=== PATIENT | male | born 1980 | race Caucasian/White ===

== ENCOUNTER → 2016-11-14 | Outpatient (CLI) | payer SELFPAY ==
[~2016-11-14] MED LIST: BENA40TA35 PO; HYDR12.523 PO; VERA120T77 PO
== END ==
LOC: LAB 14:50
PROVIDERS: ATTEND Family Medicine
DX: R45.4 Irritability and anger (principal)
CPT/HCPCS: 80307

== ENCOUNTER 2017-01-21 21:48 | Emergency (ER) | payer SELFPAY ==
[~2017-01-21] VITALS: Ht 165.1 cm; Wt 94.9 kg
--- OUTSIDE RECORDS SUMMARY | 2017-01-21 21:52 | XMS REPORT | Referral Summary ---
Author Author [facility] Organization [facility] Address Unknown Phone Unavailable Care Team Providers Care Horse Trader Name Role Phone Bev Castillo II Primary Care Physician [phone] Encounter VC MICHAEL [id number] Date(s): 05/03/16 - 05/03/16 [facility] [address] [place] [address] Discharge Diagnosis: Laceration of left thumb Discharge Disposition: 01-Home or Self Care Attending Physician: Rayray Soria MD Admitting Physician: Rayray Soria MD Vital Signs Most recent to 1 oldest [Reference Range]: Temperature Oral 36.3 degC [35.8-37.3 degC] (05/03/16 3:25 PM) Peripheral Pulse 82 bpm Rate [60-100 bpm] (05/03/16 7:23 PM) Respiratory Rate 16 br/min [14-20 br/min] (05/03/16 7:23 PM) Blood Pressure 142/87 mmHg [90-140/60-90 mmHg] *HI* (05/03/16 7:23 PM) SpO2 97 % (05/03/16 7:23 PM) Problem List No data available for this section Allergies, Adverse Reactions, Alerts No Known Allergies Medications cephalexin 500 mg oral tablet 500 mg 1 tabs, Oral, QID, X 5 days, # 20 tabs, 0 Refill(s) Start Date: 05/03/16 Stop Date: 05/08/16 Status: Ordered [place] 5 mg-325 mg oral tablet 1 tabs, Oral, q4hr, as needed for pain, # 6 tabs, 0 Refill(s) Start Date: 05/03/16 Stop Date: 05/05/16 Status: Ordered Results No data available for this section Immunizations Vaccine Date Refusal Reason tetanus/diphth/pertuss (Tdap) adult/adol 05/03/16 Procedures No data available for this section Social History Social History Type Response Smoking Status Current every day smoker; Type: Cigarettes; Tobacco use per day: 1 pack or more Assessment and Plan No data available for this section
[2017-01-21 22:06] VITALS: Ht 165.1 cm; Wt 94.9 kg
--- NOTE | 2017-01-21 22:17 | ERPDOC ---
Departure Disposition Decision Date: January 22, 2017 Disposition Decision Time: 11:37 () Disposition: 65 TO PSYCH HOSP/UNIT Impression Impression (ARMOND DIAZ MD) Impression: Primary Impression: Psychosis Psychosis type: unspecified psychosis type Qualified Codes: F29 - Unspecified psychosis not due to a substance or known physiological condition Additional Impressions: Paranoia Delusion Severity: Severe () Condition: Stable Seen By: Physician only () Referrals: RANDY WREN II, MD (Family) Problems/Meds/Labs Reviewed?: Yes Medications reviewed and manag: Yes () Follow up care ordered?: Yes Mental Status: Alert () HPI - Psychosocial General Chief Complaint: Psychiatric Problems Stated Complaint: PSYCH EVAL Time Seen by MD: 22:05 Source: patient, family Exam Limitations: clinical condition (ARMOND DIAZ MD) Time Seen by MD: 06:07 () HPI - Psychosocial Initial Comments Patient has apparently been struggling with depression, paranoia, and suicidal ideation. These sx have been going on for months and worsening. Pt has seen Palak Red MATHEMATICAL SCIENTIST at [facility]. Last visit was 6+ weeks ago. At that time patient was given samples of something to help him sleep, and something to help with the paranoia. Ms. Red strongly recommended that the patient needed inpatient therapy, and as soon as the patient was willing to go, she instructed them to return. However up until now, the patient has been reluctant to seek therapy. Apparently tonight, in the middle of more ill day weekend, the patient is now ready to receive therapy per his mother, and his mother brought him in. Patient is very uncooperative, answers questions if at all, only and vague terms. Patient does state that he feels like he wants to so that he's not a burden to his family, but will answer no further questions. However patient appears to be somewhat disingenuous and quite manipulative with his answers. Mother states that the patient has been quite paranoid, worsening over the past 6 weeks, he has not been sleeping at all over the past 3-5 days, has some visual hallucinations, and becomes quite agitated at times. Patient has a history of alcohol and cocaine abuse in the past, but states he doesn't know if anything is in his in his system now. Occurred At: home Onset: Gradual Severity: moderate Associated Symptoms: impaired concentration, suicidal ideation Hx of Similar Symptoms: Yes (ARMOND DIAZ MD) Allergies: Coded Allergies: dextrose (Verified Allergy, Unknown, RASH, 01/21/17) psyllium husk (Verified Allergy, Unknown, RASH, 01/21/17) psyllium seed (Verified Allergy, Unknown, RASH, 01/21/17) sucrose (Verified Allergy, Unknown, RASH, 01/21/17) Past History Unable to Obtain Comments Patient refuses to answer many questions (ARMOND DIAZ MD) Patient Medical History Problem List Updates: Paranoia Depression with suicidal ideation Alcohol and drug abuse (ARMOND DIAZ MD) Past Medical History Metabolic: hypertension Musculoskeletal: other (ARMOND DIAZ MD) Vaccines Hx Influenza Vaccination: No (ARMOND DIAZ MD) Social History Smoking Status: Current every day smoker Does patient use chewing tobac: No Second Hand Exposure: No (ARMOND DIAZ MD) Review of Systems Unable to Obtain Comments Patient refuses to answer most questions Review of systems is only as per mom for frequent agitation, depression with anxiety and paranoia, and significant sleep disturbance (ARMOND DIAZ MD) Physical Exam General General Nourishment: well nourished, well developed, appears stated age (ARMOND DIAZ MD) Vitals and Pain First Documented Vital Signs Date Time Temp Pulse Resp B/P Pulse Ox O2 Delivery O2 Flow Rate FiO2 01/21/17 22:06 87 20 155/107 95 Room Air 01/22/17 11:00 98.7 (DECEMBER,GEMMA M DO) Vitals and Pain Weight: Kilograms: Height (feet): Height (inches): Triage Pain Scale: (ARMOND DIAZ MD) Comments Patient appears to be in no distress, initially will since, and then completely ignores the examiner for most of the rest of the exam and questions. Patient is not well-kept, or hygiene, and reeks of tobacco and possibly alcohol (ARMOND DIAZ MD) Normal Exams: Head: Normocephalic w/o trauma Eyes: Pupils are PERRLA w/ EOMI, No scleral icterus, irritation, or foreign bodies noted ENMT: No facial trauma, nasal exudates, pharyngeal erythema, or exudates are noted Neck: Full range of motion, without adenopathy, JVD, bruits or thyromegaly Chest/Resp: Clear all hart, with good airflow, and symmetry bilaterally CV: Regular rate and rhythm, without murmur or gallop, Pulses 2+ all extremities, capillary refill, <2 seconds all ext., no pedal edema noted Abdomen: Bowel sounds positive, soft, non-tender, non-distended, no hepatosplenomegaly, masses or bruits noted Lymphatic: No lymphadenopathy, or lymphedema noted Musculoskeletal: No tenderness, or deformity noted, good range of motion, all extremities Integumentary: No rashes, hives, or bruising noted, hair and nails, without abnormality Neurologic: Patient is alert, and oriented, cranial nerves, motor/sensory/ cerebellar, exams w/o gross deficits, to observation (ARMOND DIAZ MD) Psychiatric (brief) Psychiatric Brief: NOT FOUND: alert, attentive, normal affect, oriented Comments Patient has moments of alertness, and then appears to completely disregard the room close his eyes and rest without engaging. (ARMOND DIAZ MD) Progress Results/Orders Orders Procedure Category Date Status Time Nothing By Mouth (Ed EDM 01/21/17 Transmitted Only) 22:11 Cbc W/Auto LAB 01/21/17 Complete Diff-Reflex Manual 22:11 Cmp - Comprehensive LAB 01/21/17 Complete Metabolic 22:11 Ethanol LAB 01/21/17 Complete 22:11 Drug Screen LAB 01/21/17 Complete Urine-Test At [facility] 22:11 Acetaminophen LAB 01/21/17 Complete 22:11 Salicylate LAB 01/21/17 Complete 22:11 Ua, Dip Wreflex LAB 01/21/17 Complete Microsc & Ocularist 22:11 Tsh - Thyroid Stim LAB 01/21/17 Complete Hormone 22:11 Olanzapine (Zyprexa) PHA 01/22/17 Complete 00:00 Diphenhydramine PHA 01/22/17 Complete (Benadryl) 00:15 Olanzapine (Zyprexa) PHA 01/22/17 Complete 02:45 Diphenhydramine PHA 01/22/17 Complete (Benadryl) 02:45 Nicotine Patch PHA 01/22/17 Complete (Nicoderm) 03:00 Ethanol LAB 5/29/17 Complete 03:30 Ethanol LAB 01/22/17 Complete 06:45 Bmp - Basic Metabolic LAB 01/22/17 Complete Panel () Lab Results Laboratory Tests Test 01/21/17 22:23 01/21/17 23:32 01/22/17 03:44 01/22/17 05:42 White Blood Count 10.2T/MM3 Red Blood Count 4.83M/MM3 Hemoglobin 15.9GM/DL Hematocrit 44.1% Mean Corpuscular Volume 91.3UM3 Mean Corpuscular Hemoglobin 32.9UUG Mean Corpuscular Hemoglobin Concent 36.1GM/DL RDW Standard Deviation 41.1FL Platelet Count 220T/MM3 Mean Platelet Volume 9.3UM3 Immature Granulocyte % (Auto) 0.2% Neutrophils (%) (Auto) 56.8% Lymphocytes (%) (Auto) 32.2% Monocytes (%) (Auto) 6.6% Eosinophils (%) (Auto) 3.7% Basophils (%) (Auto) 0.5% Absolute Immature Granulocyte (auto 0.02T/MM3 Absolute Neutrophils (auto) 5.8T/MM3 Absolute Lymphocytes (auto) 3.3T/MM3 Absolute Monocytes (auto) 0.7T/MM3 Absolute Eosinophils (auto) 0.4T/MM3 Absolute Basophils (auto) 0.1T/MM3 Turbidity < 20 Sodium Level 150MEQ/L Potassium Level 4.0MEQ/L Chloride Level 110MEQ/L Carbon Dioxide Level 23MEQ/L Anion Gap 17MEQ/L Blood Urea Nitrogen 16.0MG/DL Creatinine 1.1MG/DL Glomerular Filtration Rate Calc 76 BUN/Creatinine Ratio 15RATIO Glucose Level 104MG/DL Calculated Osmolality 289MOSM/KG Calcium Level 8.6MG/DL Total Bilirubin 0.30MG/DL Icterus Index < 2 Aspartate Amino Transf (AST/SGOT) 27U/L Alanine Aminotransferase (ALT/SGPT) 33U/L Alkaline Phosphatase 115U/L Total Protein 7.1G/DL Albumin 4.6G/DL Globulin 2.5G/DL Albumin/Globulin Ratio 1.8RATIO Thyroid Stimulating Hormone (TSH) 0.33MIU/L Chemistry Specimen Hemolysis < 15 Salicylates Level < 1.0MG/DL Acetaminophen Level < 10UG/ML Alcohol, Quantitative 245MG/DL 155MG/DL Urine Collection Type Cleancatch-midstream Urine Color Yellow Urine Turbidity Clear Urine pH 5.0 Urine Specific [place] 1.010 Urine Protein Negative Urine Glucose (UA) Negative Urine Ketones Trace Urine Blood Trace Urine Nitrite Negative Urine Bilirubin Negative Urine Urobilinogen NormalEU/DL Urine Leukocyte Esterase Negative Urinalysis Comment Microscopic not ind. Urine Opiates Screen NegativeNG/ML Urine Oxycodone Screen NegativeNG/ML Urine Methadone Screen NegativeNG/ML Urine Propoxyphene Screen NegativeNG/ML Urine Barbiturates Screen NegativeNG/ML Urine Tricyclic Antidepressants NegativeNG/ML Urine Phencyclidine Screen NegativeNG/ML Urine Amphetamines Screen NegativeNG/ML Urine Methamphetamines Screen NegativeNG/ML Urine Benzodiazepines Screen NegativeNG/ML Urine Cocaine Screen NegativeNG/ML Urine Cannabinoids Screen NegativeNG/ML Lab Scanned Report REFERENCE [id number] Test 01/22/17 06:39 01/22/17 10:49 Alcohol, Quantitative 88MG/DL Turbidity < 20 Sodium Level 143MEQ/L Potassium Level 3.8MEQ/L Chloride Level 104MEQ/L Carbon Dioxide Level 27MEQ/L Anion Gap 12MEQ/L Blood Urea Nitrogen 17.0MG/DL Creatinine 1.0MG/DL Glomerular Filtration Rate Calc 85 BUN/Creatinine Ratio 17RATIO Glucose Level 94MG/DL Calculated Osmolality 277MOSM/KG Calcium Level 8.9MG/DL Icterus Index < 2 Chemistry Specimen Hemolysis < 15 (DECEMBER,) Medications Current ED Medications Olanzapine (Zyprexa) 10 mg O ONCE IM Last administered on 01/21/17 23:58; Start 01/22/17 at 00:00; Stop 01/22/17 at 00:01; Status DC Diphenhydramine HCl (Benadryl) 50 mg O ONCE PO ; Start 01/22/17 at 00:15; Stop 01/22/17 at 00:16; Status DC Olanzapine (Zyprexa) 10 mg O ONCE IM Last administered on 01/22/17 02:47; Start 01/22/17 at 02:45; Stop 01/22/17 at 02:46; Status DC Diphenhydramine HCl (Benadryl) 50 mg O ONCE IM Last administered on 01/22/17 02:47; Start 01/22/17 at 02:45; Stop 01/22/17 at 02:46; Status DC Nicotine (Nicoderm) 21 mg O ONCE TD Last administered on 01/22/17 02:55; Start 01/22/17 at 03:00; Stop 01/22/17 at 03:01; Status DC (GEMMA LACEY DO) Medications Current ED Medications Olanzapine (Zyprexa) 10 mg O ONCE IM Last administered on 01/21/17 23:58; Start 01/22/17 at 00:00; Stop 01/22/17 at 00:01; Status DC Diphenhydramine HCl (Benadryl) 50 mg O ONCE PO ; Start 01/22/17 at 00:15; Stop 01/22/17 at 00:16; Status DC Olanzapine (Zyprexa) 10 mg O ONCE IM Last administered on 01/22/17 02:47; Start 01/22/17 at 02:45; Stop 01/22/17 at 02:46; Status DC Diphenhydramine HCl (Benadryl) 50 mg O ONCE IM Last administered on 01/22/17 02:47; Start 01/22/17 at 02:45; Stop 01/22/17 at 02:46; Status DC Nicotine (Nicoderm) 21 mg O ONCE TD Last administered on 01/22/17 02:55; Start 01/22/17 at 03:00; Stop 01/22/17 at 03:01; Status DC (ARMOND DIAZ MD) Progress Progress Lab screens have all been ordered All labs normal with exception of slightly decreased TSH. Patient's blood alcohol initial screen showed 255, elevated. After extensive and multiple conversations in the patient's room with both the patient and his mother, it's very parents that the patient is moderately delusional, thinking that everyone is lying to him, and he becomes significantly agitated during the course of conversation. Over the course of several hours, while waiting for the patient's blood alcohol level to drop, patient became agitated and continued multiple times to curse at both his mother the examiner and any other staff within vision. Patient has been very frustrated at the entire process, but admits he needs and wants help with his depression, his paranoia, his alcoholism, and his processing /thinking. I had the [place] view screener, Andrew, try to talk with the patient and establish whether he would meet inpatient criteria for usual thoughts with depression, but the patient was unwilling to speak candidly with Andrew, and in fact became so agitated during the conversation that he stated that "if you will just let me go home although blow-by had off and nobody will have to worry about me." Patient's mother also has serious concerns about the patient's ongoing safety as his behavior continues to become more and more reckless. After the patient's outburst as well as bizarre behavior in the ER, it has become apparent that the patient does need psychiatric stabilization, and with his multiple threats of possible self-harm or suicide, patient warrants mandatory observation in the ER for complete sobering, and subsequent formal psychiatric evaluation by [place] screener after the patient's blood alcohol level is below 100. Blood alcohol recheck at 3:45 AM shows 155. Patient is metabolizing at 20 mg/dl/ hr, and we will recheck his blood alcohol at 6:30 AM. I discussed the case again with Andrew who will plan on passing the case off to his relief at 7 AM. (ARMOND DIAZ MD) Consult/PCP Consult/PCP #1: Physician Contacted: NORMA Time Called: 07:41 Time of first response: 07:55 Type of discussion: Phone Consult/PCP Discussion Details Request screener for State BH screen. In another facility currently. Will be down in ~1hr for State screen. Consult/PCP #2: Physician Contacted: Dr. Lockhart Time Called: 10:35 Type of discussion: Admit Discussion/PCP Discussion Details Concerned about Na/Cl elevations. Requests repeat draw. 1130: Na now 143; pt accepted for txfr. Accepting will be Dr. Stephenson (DECEMBERGEMMA DO) ARMOND DIAZ MD January 21, 2017 22:17 DECEMBERGEMMA DO January 22, 2017 07:42
[2017-01-21 22:31] LABS: BASOPHILS # (AUTO) 0.1 T/MM3 (0-0.2); BASOPHILS % (AUTO) 0.5 % (0-2); EOSINOPHILS # (AUTO) 0.4 T/MM3 (0-0.5); EOSINOPHILS % (AUTO) 3.7 % (0-4); HCT - HEMATOCRIT 44.1 % (41-53); HGB - HEMOGLOBIN 15.9 GM/DL (13.5-17.5); IMMATURE GRANULOCYTE # (AUTO) 0.02 T/MM3 (0.00-0.03); IMMATURE GRANULOCYTE % (AUTO) 0.2 % (0.0-0.5); LYMPHOCYTES # (AUTO) 3.3 T/MM3 (1-4.8); LYMPHOCYTES % (AUTO) 32.2 % (23-45); MEAN CORPUSCULAR HGB 32.9 UUG (26-34); MEAN CORPUSCULAR HGB CONC(MCHC 36.1 GM/DL (31-37); MEAN CORPUSCULAR VOLUME 91.3 UM3 (80-100); MEAN PLATELET VOLUME 9.3 UM3 (9.4-12.4); MONOCYTES # (AUTO) 0.7 T/MM3 (0-0.8); MONOCYTES % (AUTO) 6.6 % (0-9.0); NEUTROPHILS #(AUTO)-ABSOLUTE 5.8 T/MM3 (1.8-7.7); NEUTROPHILS % (AUTO) 56.8 % (33-66); RED BLOOD COUNT 4.83 M/MM3 (4.50-5.90); WBC - WHITE BLOOD COUNT 10.2 T/MM3 (4.5-11.0)
[2017-01-21 22:41] LABS: ACETAMINOPHEN < 10 UG/ML (10-30); ALBUMIN 4.6 G/DL (3.5-5.0); ALBUMIN/GLOBULIN RATIO 1.8 RATIO (1.1-2.2); ALKALINE PHOSPHATASE 115 U/L (38-126); ALT (SGPT) 33 U/L (21-72); ANION GAP 17 MEQ/L (5-15); AST (SGOT) 27 U/L (17-59); BUN/CREATININE RATIO 15 RATIO (6-26); CALCIUM 8.6 MG/DL (8.4-10.2); CHLORIDE 110 MEQ/L (98-107); CO2 - CARBON DIOXIDE 23 MEQ/L (22-30); CREATININE 1.1 MG/DL (0.8-1.5); ETHANOL 245 MG/DL (<10); GLOMERULAR FILTRATION RATE 76; GLUCOSE 104 MG/DL (75-110); SALICYLATE < 1.0 MG/DL (2-20); SODIUM 150 MEQ/L (134-144); TOTAL PROTEIN 7.1 G/DL (6.3-8.2)
--- NOTE | 2017-01-21 22:50 | NUR ---
STATUS NURSE ASKS PT TO PROVIDE A URINE SAMPLE FOR LAB TESTING, PT REFUSES, CURSING AND RAISING HIS VOICE TO STAFF AND REFUSES AT THIS TIME.
[2017-01-21 23:27] LABS: THYROID STIM HORMONE-TSH 0.33 MIU/L (0.47-4.68)
[2017-01-21 23:47] LABS: COLOR,URINE YELLOW (YELLOW); LEUKOCYTE ESTERASE ,URINE NEGATIVE (NEGATIVE); NITRITE,URINE NEGATIVE (NEGATIVE); UROBILINOGEN,URINE NORMAL (NORMAL)
[2017-01-21 23:48] LABS: BLOOD, URINE TRACE (NEGATIVE)
--- NOTE | 2017-01-21 23:52 | NUR ---
NOHEMY PT IS PACING AROUND THE ROOM CURSING AND YELLING AT HIS MOTHER AND NURSING STAFF. UNCOOPERATIVE WITH ANY REQUESTS FROM STAFF.
[2017-01-21 23:54] LABS: AMPHETAMINE SCREEN,URINE NEGATIVE; BARBITURATE SCREEN,URINE NEGATIVE; BENZODIAZEPINES SCREEN,URINE NEGATIVE; CANNABINOID SCREEN,URINE NEGATIVE; COCAINE SCREEN,URINE NEGATIVE; METHADONE SCREEN, URINE NEGATIVE; METHAMPHETAMINE SCREEN, URINE NEGATIVE; OPIATE SCREEN,URINE NEGATIVE; PHENCYCLIDINE SCREEN,URINE NEGATIVE; TRICYCLIC ANTIDEPRESSANT,URINE NEGATIVE
--- NOTE | 2017-01-22 00:03 | NUR ---
STATUS PROVIDER IS IN ROOM, PT IS ANGRY AND AGGITATED AND IS AGAIN PACING AROUND THE ROOM YELLING AND CURSING, VERY ANGRY, PT STATES "GIVE ME SOMETHING TO KNOCK ME OUT".
--- NOTE | 2017-01-22 00:20 | NUR ---
STATUS PT IS SLEEPING AND LIGHTS ARE DIMMED IN ROOM FOR PT COMFORT.
--- NOTE | 2017-01-22 02:06 | NUR ---
ANGRY PT IS AGAIN ANGRY WITH PROVIDER WHO IS AT BEDSIDE AND IS YELLING AND CURSING, PT REFUSES TO ACCOMPANY NURSING STAFF WHEN HE IS ASKED TO MOVE TO A DIFFERENT ROOM.
--- NOTE | 2017-01-22 02:30 | NUR ---
SUICIDAL THOUGHTS PT WANTS TO GO HOME, HE YELLS AT HIS MOTHER "JUST TAKE ME HOME SO THAT I CAN SHOOT MYSELF IN THE HEAD".
--- NOTE | 2017-01-22 02:33 | NUR ---
911 PT CONTINUES TO REFUSE TO MOVE TO DIFFERENT ROOM WITH STAFF AND CONTINUES TO YELL AT STAFF, [employer] IS CONTACTED FOR ASSISTANCE AT THIS TIME.
[2017-01-22] MEDS ORDERED: OLANZAPINE 10 MG/VIAL INJECTION IM ONE ×2 (02:45)
[2017-01-22] MEDS ORDERED: DiphenhydrAMINE 50 MG/ML INJECTION IM ONE (02:45)
[2017-01-22] MEDS ORDERED: NICOTINE 21 MG PATCH TD ONE (03:00)
--- NOTE | 2017-01-22 04:36 | NUR ---
STATUS PT IS SLEEPING IN BED AT THIS TIME.
--- NOTE | 2017-01-22 05:20 | NUR ---
STATUS PT IS UP OUT OF BED, ANGRY AND PACING IN THE ROOM. PT REQUESTING TO GO HOME AND REQUESTING TO GO OUT AND SMOKE A CIGERETTE. PT HAS REMOVED NICOTINE PATCH PREVIOUSLY PLACED AND IT IS SITTING ON THE COUNTER.
--- NOTE | 2017-01-22 06:13 | NUR ---
911 PT IS UP OUT OF BED AND WALKING AROUND ROOM, AGGITATED AND CURSING AT STAFF REFUSING TO COOPERATE. DISPATCH CONTACTED FOR LAW ENFORCEMENT ASSIST AT THIS TIME.
--- NOTE | 2017-01-22 06:35 | NUR ---
[employer] OFFICERS IN ROOM TO TALK TO PT AT THIS TIME.
--- NOTE | 2017-01-22 07:00 | NUR ---
STATUS PT RESTING ON CART WITHOUT FURTHER INCIDENCE
--- NOTE | 2017-01-22 07:45 | NUR ---
CONSULT DR LACEY TALKING TO PAMELLA DUQUE
--- NOTE | 2017-01-22 07:59 | NUR ---
SCREEN DEBORA FROM PV COMING TO SCREEN PT IN APPROX 1 HR
--- NOTE | 2017-01-22 09:13 | NUR ---
SCREEN DEBORA WITH PV HERE TO SEE PT
--- NOTE | 2017-01-22 09:31 | NUR ---
ELIMINATION PT VOIODED 900CC ELODIA URINE
--- NOTE | 2017-01-22 10:10 | NUR ---
STATUS PT ON CART RESTING AT THIS TIME. AWATING SUPPLY TECH BACK FROM [facility]
--- NOTE | 2017-01-22 10:47 | NUR ---
LAB LAB IN ROOM FOR REDRAW ON ELEVATED SODIUM
--- NOTE | 2017-01-22 10:58 | NUR ---
REPORT RECEIVED FROM MARIO RAM. CARE ASSUMED.
[2017-01-22 11:00] VITALS: TEMP 98.7
[2017-01-22 11:18] LABS: ANION GAP 12 MEQ/L (5-15); BUN/CREATININE RATIO 17 RATIO (6-26); CALCIUM 8.9 MG/DL (8.4-10.2); CHLORIDE 104 MEQ/L (98-107); CO2 - CARBON DIOXIDE 27 MEQ/L (22-30); GLOMERULAR FILTRATION RATE 85; GLUCOSE 94 MG/DL (75-110); POTASSIUM 3.8 MEQ/L (3.6-5); SODIUM 143 MEQ/L (134-144)
--- NOTE | 2017-01-22 11:37 | NUR ---
REPORT REPORT TO KVNG AT [facility]
--- NOTE | 2017-01-22 11:45 | NUR ---
TRANSPORT [facility] COMING TO TRANSPORT PT TO [facility]
--- NOTE | 2017-01-22 11:52 | NUR ---
TRANSFER EXPLAINED TRANSFER FORM WITH ACCEPTING PROVIDER AND FACILITY. PT REFUSED TO SIGN FORM AFTER EXPLAINING.
--- NOTE | 2017-01-22 12:15 | NUR ---
[facility] HERE, REPORT PROVIDED. MEDICS GIVEN PT BELONGINGS AND TRANSFER PAPERWORK.
--- NOTE | 2017-01-22 12:19 | NUR ---
STATUS PT UNCOOPERATIVE WITH WALKING OUT TO TRANSPORT VEHICLE. [employer] [facility] CONTACTED, REQUESTED DOROTHY WELLINGTON TO ASSIST WITH PT LOADING.
--- NOTE | 2017-01-22 12:25 | NUR ---
DEPART PT AMBULATED UNASSISTED, ACCOMANIED BY [facility] X[facility]. PT LOADED IN VEHICLE, DEPARTING FOR TRANSFER TO [place] AT THIS TIME.
--- NOTE | 2017-01-22 12:27 | NUR ---
[employer] [facility] NOTIFIED OF PT'S DEPARTURE, INSTRUCTED TO TURN PD AROUND FROM RESPONDING.
--- NOTE | 2017-01-22 12:55 | NUR ---
ETA UPDATE CONTACTED [facility], REPORTED 1500 ESTIMATED TIME OF ARRIVAL OF PT TO THEIR FACILITY.
[2017-01-22 13:00] VITALS: BP 144/87; PULSE 83; RESP 14; O2SAT 94
== END 2017-01-22 12:25 ==
LOC: ED 21:48
DX: F29 Unspecified psychosis not due to a substance or known physiological condition (principal); F22 Delusional disorders; F32.9 Major depressive disorder, single episode, unspecified; R45.851 Suicidal ideations; F17.200 Nicotine dependence, unspecified, uncomplicated
CPT/HCPCS: 36415; 80048; 80053; 80306; 80307; 81003; 84443; 85025